=== PATIENT | male | born 1985 | race African-American/Black ===

== ENCOUNTER 2022-09-30 23:01 | Emergency (ER) | payer OTHER ==
[~2022-09-30] VITALS: Ht 182.9 cm; Wt 111.0 kg
[2022-09-30 23:40] LABS: Urine Bacteria NONE SEEN /hpf (None Seen); Urine Blood Negative /uL (Negative); Urine Specific Gravity 1.035 (1.001-1.035); Urine WBC <1 /hpf (0 - 3)
[2022-10-01 03:17] VITALS: BP 134/53
== END 2022-10-01 03:32 | disposition home or self-care (01) ==
LOC: ER 23:01
DX: N43.2 Other hydrocele (principal); R10.30 Lower abdominal pain, unspecified; F41.9 Anxiety disorder, unspecified
CPT/HCPCS: 76870; 81001

== ENCOUNTER → 2023-05-15 | Day surgery (SDC) | payer OTHER ==
[2023-05-13 10:46] LABS: Basophils # (auto) 0.1 10 ^3/uL (0-0.2); Eosinophils # (auto) 0.6 10 ^3/uL (0-0.8); Eosinophils % (auto) 8.2 % (0.0-7.0); Hemoglobin 15.1 g/dL (13.5-17.5); Lymphocytes # (auto) 2.3 10 ^3/uL (0.4-5.4); Lymphocytes % (auto) 33.4 % (10.0-50.0); Mean Corpuscular Hgb Conc. 32.9 g/dL (32.0-36.0); Monocytes # (auto) 0.5 10 ^3/uL (0-1.3); Neutrophils # (auto) 3.5 10 ^3/uL (1.6-8.6); Neutrophils % (auto) 50.4 % (37.0-80.0); Nucleated Red Blood Cells % 0.1 %; Red Blood Cells 5.41 10^6/uL (4.5-5.90); Red Cell Distribution Width 13.3 % (11.8-14.3)
[2023-05-13 11:08] LABS: INR 1.1 (0.9-1.15); Partial Thromboplastin Time 29.9 SEC (24.5-34.5)
[2023-05-13 11:12] LABS: Calcium 9.2 mg/dL (8.5-10.1)
[2023-05-13 11:18] LABS: BUN/Creatinine Ratio 8.7 (10.0-20.0); Bilirubin, Total 0.7 mg/dL (0.2-1.0)
[~2023-05-15] VITALS: Ht 182.9 cm; Wt 108.9 kg
[2023-05-15] MEDS: diphenhdrAMINE HCL 50 MG/1 ML VL ONE ×2 (14:46→14:49)
[2023-05-15] MEDS: MIDAZOLAM HCL 2MG/2ML 2ml VIAL (1mg/ml) ONE ×2 (14:46→14:49)
[2023-05-15] MEDS: fentaNYL CITRATE 100 MCG/2 ML VL ONE ×3 (14:46→14:52)
[2023-05-15 15:00] VITALS: O2SAT 94
[2023-05-15 15:05] VITALS: TEMP 98
[2023-05-15 15:35] VITALS: BP 122/62; PULSE 66; RESP 12
== END | disposition home or self-care (01) ==
LOC: GI 12:30
PROVIDERS: ATTEND Internal Medicine Gastroenterology
DX: Z12.11 Encounter for screening for malignant neoplasm of colon (principal); K63.5 Polyp of colon; K64.8 Other hemorrhoids; J45.909 Unspecified asthma, uncomplicated; F41.8 Other specified anxiety disorders; Z98.890 Other specified postprocedural states
CPT/HCPCS: 36415; 45380; 80053; 85025; 85610; 85730; 88305; J1200; J2250; J3010; J7030